=== PATIENT | female | born 1990 | race Hispanic/Latino ===

== ENCOUNTER 2018-01-13 19:30 | Emergency (ER) | payer MEDICAID ==
--- NOTE | 2018-01-13 19:57 | EDM.PDOC ---
ED HPI GENERAL MEDICAL PROBLEM - General Chief Complaint: ENT Problem Stated Complaint: PT HAS SORE THROAT AND EAR INFECTION Time Seen by Provider: 01/13/18 19:35 Source of Information: Reports: Patient History Limitations: Reports: No Limitations - History of Present Illness INITIAL COMMENTS - FREE TEXT/NARRATIVE: HISTORY AND PHYSICAL: History of present illness: 27-year-old female presenting emergency department chief complaint of sore throat, rhinorrhea 2 days. Mother states that her children have been sick and she yesterday began having mild sore throat with associated rhinorrhea. She denies any fever or chills, nausea, vomiting, abdominal pain, diarrhea, or other signs of systemic infection. Generally she is normally healthy. They do not have a care provider. Currently denies any chest pain, palpitations, shortness of breath, syncopal episodes, or focal neurologic deficits. On exam there is mild erythema to tonsils bilaterally no exudate. Mild submandibular lymphadenopathy Nontender Review of systems: As per history of present illness and below otherwise all systems reviewed and negative. Past medical history: As per history of present illness and as reviewed below otherwise noncontributory. Surgical history: As per history of present illness and as reviewed below otherwise noncontributory. Social history: No reported history of drug or alcohol abuse. Family history: As per history of present illness and as reviewed below otherwise noncontributory. Physical exam: HEENT: Atraumatic, normocephalic, pupils reactive, negative for conjunctival pallor or scleral icterus, mucous membranes moist, neck supple, nontender, trachea midline. Lungs: Clear to auscultation, breath sounds equal bilaterally, chest nontender. Heart: S1S2, regular, mild Grade 2 systolic murmur, negative for clicks, rubs, or JVD. Abdomen: Soft, nondistended, nontender. Negative for masses or hepatosplenomegaly. Negative for costovertebral tenderness. Pelvis: Stable nontender. Genitourinary: Deferred. Rectal: Deferred. Extremities: Atraumatic, negative for cords or calf pain. Neurovascular unremarkable. Neuro: Awake, alert, oriented. Cranial nerves II through XII unremarkable. Cerebellum unremarkable. Motor and sensory unremarkable throughout. Exam nonfocal. Diagnostics: Rapid strep Therapeutics: [] Impression: Viral upper respiratory tract infection Plan: Rapid strep was negative. Patient most likely has viral upper respiratory tract infection. I did instruct mother to continue washing hands as both daughters were positive for strep and she could be susceptible to this. Instructed them to follow up with primary care provider and return to emergency department if any new or worsening symptoms. Definitive disposition and diagnosis as appropriate pending reevaluation and review of above. throat Pain Score (Numeric/FACES): 6 - Related Data Allergies Allergy/AdvReac Type Severity Reaction Status Date / Time No Known Allergies Allergy Verified 01/13/18 19:49 Home Meds: Home Meds . 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: Musculoskeletal History: Reports: None Neurological History: Reports: None Psychiatric History: Reports: None Endocrine/Metabolic History: Reports: None Hematologic History: Reports: None Immunologic History: Reports: None Oncologic (Cancer) History: Reports: None Dermatologic History: Reports: None - Infectious Disease History Infectious Disease History: Reports: None - Past Surgical History Head Surgeries/Procedures: Reports: None Female Surgical History: Reports: Section Social & Family History - Family History Family Medical History: Noncontributory - Tobacco Use Smoking Status *Q: Never Smoker - Caffeine Use Caffeine Use: Reports: None - Recreational Drug Use Recreational Drug Use: No ED ROS GENERAL - Review of Systems Review Of Systems: ROS reveals no pertinent complaints other than HPI. ED EXAM, GENERAL - Physical Exam Exam: See Below Course - Vital Signs Last Recorded V/S: Last Vital Signs Temp 97.5 F 01/13/18 19:49 Pulse 76 01/13/18 19:49 Resp 18 01/13/18 19:49 BP 151/93 H 01/13/18 19:49 Pulse Ox 98 01/13/18 19:49 - Orders/Labs/Meds Orders: Active Orders 24 hr Category Date Time Status CULTURE STREP A CONFIRMATION [] Stat Lab 01/13/18 19:46 Results STREP SCRN A RAPID W CULT CONF [] Stat Lab 01/13/18 19:46 Ordered Departure - Departure Time of Disposition: 20:51 Disposition: Home, Self-Care 01 Condition: Good Clinical Impression: Viral URI - Discharge Information Forms: ED Department Discharge Additional Instructions: My general discharge The following information is given to patients seen in the emergency department who are being discharged to home. This information is to outline your options for follow-up care. We provide all patients seen in our emergency department with a follow-up referral. The need for follow-up, as well as the timing and circumstances, are variable depending upon the specifics of your emergency department visit. If you don't have a primary care physician on staff, we will provide you with a referral. We always advise you to contact your personal physician following an emergency department visit to inform them of the circumstance of the visit and for follow-up with them and/or the need for any referrals to a consulting specialist. The emergency department will also refer you to a specialist when appropriate. This referral assures that you have the opportunity for follow-up care with a specialist. All of these measure are taken in an effort to provide you with optimal care, which includes your follow-up. Under all circumstances we always encourage you to contact your private physician who remains a resource for coordinating your care. When calling for follow-up care, please make the office aware that this follow-up is from your recent emergency room visit. If for any reason you are refused follow-up, please contact the [facility] Emergency Department at and asked to speak to the emergency department charge nurse. [facility] [address] [place] [phone] As we discussed call primary care with number above to follow-up and establish care for your family. Be sure to tell them that you're seen in the emergency department and they wished for you to be seen as soon as possible for follow-up. Return to emergency department if any new or worsening symptoms. - My Orders Last 24 Hours: My Active Orders 01/13/18 19:46 CULTURE STREP A CONFIRMATION [RM] Stat STREP SCRN A RAPID W CULT CONF [RM] Stat - Assessment/Plan Last 24 Hours: My Active Orders 01/13/18 19:46 CULTURE STREP A CONFIRMATION [RM] Stat STREP SCRN A RAPID W CULT CONF [RM] Stat
== END 2018-01-13 21:00 | disposition home or self-care (01) ==
LOC: MW.ED 19:30
DX: J06.9 Acute upper respiratory infection, unspecified (principal)
CPT/HCPCS: 87081; 87880-QW; 99283

== ENCOUNTER 2018-02-04 12:43 | Emergency (ER) | payer MEDICAID ==
[2018-02-04] MEDS ORDERED: Sodium Chloride 0.9% 2.5 ML Syringe FLUSH PRN (13:13)
[2018-02-04] MEDS ORDERED: Ketorolac 30 MG/ML SDV IVPUSH ONE (13:13)
[2018-02-04] MEDS ORDERED: diphenhydrAMINE 50 MG/ML SDV IVPUSH ONE (13:13)
[2018-02-04] MEDS ORDERED: Sodium Chloride 0.9% 1,000 ML IV ONE (13:13)
[2018-02-04] MEDS ORDERED: Sodium Chloride 0.9% 10 ML Syringe FLUSH PRN (13:13)
--- NOTE | 2018-02-04 13:13 | EDM.PDOC ---
ED HPI GENERAL MEDICAL PROBLEM - General Chief Complaint: Headache Stated Complaint: HEADACHES Time Seen by Provider: 02/04/18 13:10 Source of Information: Reports: Patient History Limitations: Reports: No Limitations - History of Present Illness INITIAL COMMENTS - FREE TEXT/NARRATIVE: HISTORY AND PHYSICAL: [] 27-year-old female presenting with headache for the last 3 days History of Present Illness: []Patient states that she had gone to bed awakened with a headache Has nausea but has not vomited Light seems to hurt her eyes No loss of balance Has never had a headache like this previously MOther has history of migraines No reported injury Review of Systems: As per history of present illness and below otherwise all systems reviewed and negative. Past medical history: As per history of present illness and as reviewed below otherwise noncontributory. Surgical history: As per history of present illness and as reviewed below otherwise noncontributory. Social history: No reported history of drug or alcohol abuse. Family history: As per history of present illness and as reviewed below otherwise noncontributory. Physical exam: Alert and oriented female answering questions appropriately in full sentences no shortness of breath with speaking. HEENT: Atraumatic, normocehpalic, pupils reactive, negative for conjunctival pallor or scleral icterus, mucous membranes moist, throat clear, neck supple, nontender, trachea midline. PERRLA no nystagmus noted on examination. Tenderness is noted on palpation to the left side of posterior neck. No cervical adenopathy. Lungs: Clear to auscultation, breath sounds equal bilaterally, chest non tender. Heart: S1S2, regular, negative for clicks, rubs, or JVD. Abdomen: Soft, nondistended, nontender. Negative for masses or hepatossplenmegaly. Negative for costovertebral tenderness. Pelvis: Stable nontender. Genitourinary: Deferred. Rectal: Deferred Extremities: Atraumatic, negative for cords or calf pain. Neurovascular unremarkable. Neuro: Awake, alert, oriented. Cranial nerves II through XII unremarkable. Cerebellum unremarkable. Motor and sensory unremarkable throughout. Exam nonfocal. Patient has improved with the medication that has been given to her Diagnostics: []CBC CMP head CT without Therapeutics: []1 L normal saline Benadryl Compazine Ativan Toradol Impression: []Migraine headache Plan: []Discharged home Today/work note given for tomorrow You may take [id number] medication is Excedrin migraine as directed on the bottle Follow-up with your primary care provider If you do not have a primary care provider you may see one of these clinics for follow-up care state that she was seen in the emergency room [facility] [address] [place] [phone] [id number] Return to emergency room as directed and discussed Definitive disposition and diagnosis as appropriate pending reevaluation and review of above. Onset: Gradual Duration: Day(s): (3) Headache Pain Score (Numeric/FACES): 7 - Related Data Allergies Allergy/AdvReac Type Severity Reaction Status Date / Time Iodinated Contrast- Oral and Allergy Rash Verified 02/04/18 13:15 IV Dye Home Meds: Home Meds Calcium Carbonate [Calcium] 1 tab PO DAILY 02/04/18 [History] Cholecalciferol (Vitamin D3) [Vitamin D] 1 tab PO DAILY 02/04/18 [History] Multivitamins [Tab-A-Racheal] 1 tab PO DAILY 02/04/18 [History] Past Medical History HEENT History: Reports: None Cardiovascular History: Reports: None Respiratory History: Reports: None Gastrointestinal History: Reports: None Genitourinary History: Reports: None 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: Musculoskeletal History: Reports: None Neurological History: Reports: None Psychiatric History: Reports: None Endocrine/Metabolic History: Reports: None Hematologic History: Reports: None Immunologic History: Reports: None Oncologic (Cancer) History: Reports: None Dermatologic History: Reports: None - Infectious Disease History Infectious Disease History: Reports: None - Past Surgical History Head Surgeries/Procedures: Reports: None Female Surgical History: Reports: Section Social & Family History - Family History Family Medical History: Noncontributory - Caffeine Use Caffeine Use: Reports: None ED ROS GENERAL - Review of Systems Review Of Systems: ROS reveals no pertinent complaints other than HPI. - Physical Exam Exam: See Below (see dictation) Course - Vital Signs Last Recorded V/S: Last Vital Signs Temp 36.1 C 02/04/18 13:11 Pulse 72 02/04/18 13:11 Resp 17 02/04/18 13:11 BP 132/84 02/04/18 13:11 Pulse Ox 98 02/04/18 13:11 - Orders/Labs/Meds Orders: Active Orders 24 hr Category Date Time Status Sodium Chloride 0.9% [Saline Flush] Med 02/04/18 13:13 Active 10 ml FLUSH ASDIRECTED PRN Sodium Chloride 0.9% [Saline Flush] Med 02/04/18 13:13 Active 2.5 ml FLUSH ASDIRECTED PRN Saline Lock Insert [OM.PC] Stat Oth 02/04/18 13:13 Ordered Medication Orders Sodium Chloride (Saline Flush) 10 ml FLUSH ASDIRECTED PRN PRN Reason: Keep Vein Open Last Admin: 02/04/18 13:23 Dose: 10 ml Sodium Chloride (Saline Flush) 2.5 ml FLUSH ASDIRECTED PRN PRN Reason: Keep Vein Open Last Admin: 02/04/18 13:23 Dose: 2.5 ml Labs: Laboratory Tests 02/04/18 02/04/18 Range/Units 13:20 13:20 WBC 6.28 (4.0-11.0) K/uL RBC 4.25 L (4.30-5.90) M/uL Hgb 13.3 (12.0-16.0) g/dL Hct 38.9 (36.0-46.0) % MCV 91.5 (80.0-98.0) fL MCH 31.3 (27.0-32.0) pg MCHC 34.2 (31.0-37.0) g/dL RDW Std Deviation 42.1 (28.0-62.0) fl RDW Coeff of Socrates 13 (11.0-15.0) % Plt Count 213 (150-400) K/uL MPV 10.50 (7.40-12.00) fL Neut % (Auto) 59.1 (48.0-80.0) % Lymph % (Auto) 29.9 (16.0-40.0) % Hunt % (Auto) 9.7 (0.0-15.0) % Eos % (Auto) 0.8 (0.0-7.0) % Baso % (Auto) 0.5 (0.0-1.5) % Neut # (Auto) 3.7 (1.4-5.7) K/uL Lymph # (Auto) 1.9 (0.6-2.4) K/uL Hunt # (Auto) 0.6 (0.0-0.8) K/uL Eos # (Auto) 0.1 (0.0-0.7) K/uL Baso # (Auto) 0.0 (0.0-0.1) K/uL Nucleated RBC % 0.0 /100WBC Nucleated RBCs # 0 K/uL Sodium 139 (136-145) mmol/L Potassium 4.0 (3.5-5.1) mmol/L Chloride 104 (98-107) mmol/L Carbon Dioxide 26.4 (21.0-32.0) mmol/L BUN 15 (7.0-18.0) mg/dL Creatinine 0.8 (0.6-1.0) mg/dL Est Cr Clr Drug Dosing 74.53 mL/min Estimated GFR (MDRD) > 60.0 ml/min Glucose 118 H (74-106) mg/dL Calcium 8.9 (8.5-10.1) mg/dL Total Bilirubin 0.4 (0.2-1.0) mg/dL AST 25 (15-37) IU/L ALT 32 (14-63) IU/L Alkaline Phosphatase 65 (46-116) U/L Total Protein 7.7 (6.4-8.2) g/dL Albumin 3.6 (3.4-5.0) g/dL Globulin 4.1 H (2.0-3.5) g/dL Albumin/Globulin Ratio 0.9 L (1.3-2.8) Meds: Medications Generic Name Dose Route Start Last Admin Trade Name Freq PRN Reason Stop Dose Admin Sodium Chloride 10 ml 02/04/18 13:13 02/04/18 13:23 Saline Flush FLUSH 10 ml ASDIRECTED PRN Administration Keep Vein Open Sodium Chloride 2.5 ml 02/04/18 13:13 02/04/18 13:23 Saline Flush FLUSH 2.5 ml ASDIRECTED PRN Administration Keep Vein Open Discontinued Medications Generic Name Dose Route Start Last Admin Trade Name Freq PRN Reason Stop Dose Admin Diphenhydramine HCl 25 mg 02/04/18 13:13 02/04/18 13:24 Benadryl IVPUSH 02/04/18 13:14 25 mg ONETIME ONE Administration Sodium Chloride 1,000 mls @ 999 mls/hr 02/04/18 13:13 02/04/18 13:23 Normal Saline IV 02/04/18 14:13 999 mls/hr STAT ONE Administration Ketorolac Tromethamine 30 mg 02/04/18 13:13 02/04/18 13:23 Toradol IVPUSH 02/04/18 13:14 30 mg ONETIME ONE Administration Lorazepam 1 mg 02/04/18 13:14 02/04/18 13:24 Ativan IVPUSH 02/04/18 13:15 1 mg ONETIME ONE Administration Departure - Departure Time of Disposition: 14:38 Disposition: Home, Self-Care 01 Condition: Good Clinical Impression: Migraine - Discharge Information *PRESCRIPTION DRUG MONITORING PROGRAM REVIEWED*: Not Applicable *COPY OF PRESCRIPTION DRUG MONITORING REPORT IN PATIENT LOKESH: Not Applicable Instructions: Migraine Headache, [id number] Referrals: PCP,None [Primary Care Provider] - Forms: ED Department Discharge Additional Instructions: The following information is given to patients seen in the emergency department who are being discharged to home. This information is to outline your options for follow-up care. We provide all patients seen in our emergency department with a follow-up referral. The need for follow-up, Discharged home Today/work note given for tomorrow You may take [id number] medication is Excedrin migraine as directed on the bottle Follow-up with your primary care provider If you do not have a primary care provider you may see one of these clinics for follow-up care state that she was seen in the emergency room [facility] [address] [place] [phone] [address] Return to emergency room as directed and discussedl as the timing and circumstances, are variable depending upon the specifics of your emergency department visit. If you don't have a primary care physician on staff, we will provide you with a referral. We always advise you to contact your personal physician following an emergency department visit to inform them of the circumstance of the visit and for follow-up with them and/or the need for any referrals to a consulting specialist. The emergency department will also refer you to a specialist when appropriate. This referral assures that you have the opportunity for followup care with a specialist. All of these measure are taken in an effort to provide you with optimal care, which includes your followup. Under all circumstances we always encourage you to contact your private physician who remains a resource for coordinating your care. When calling for followup care, please make the office aware that this follow-up is from your recent emergency room visit. If for any reason you are refused follow-up, please contact the [facility] emergency department at and asked to speak to the emergency department charge nurse. - My Orders Last 24 Hours: My Active Orders 02/04/18 13:13 Sodium Chloride 0.9% [Saline Flush] 10 ml FLUSH ASDIRECTED PRN Sodium Chloride 0.9% [Saline Flush] 2.5 ml FLUSH ASDIRECTED PRN Saline Lock Insert [OM.PC] Stat - Assessment/Plan Last 24 Hours: My Active Orders 02/04/18 13:13 Sodium Chloride 0.9% [Saline Flush] 10 ml FLUSH ASDIRECTED PRN Sodium Chloride 0.9% [Saline Flush] 2.5 ml FLUSH ASDIRECTED PRN Saline Lock Insert [OM.PC] Stat
[2018-02-04] MEDS ORDERED: LORazepam 2 MG/ML SDV IVPUSH ONE (13:14)
--- NOTE | 2018-02-04 13:56 | CT ---
EXAMINATION: Non contrast CT head. Coronal and sagittal reformats. HISTORY: Pain FINDINGS: No evidence of intra or extra axial hemorrhage, mass, midline shift, hydrocephalus or edema. No hypoattenuation changes in the major vascular territories to suggest acute infarct. No abnormal intracranial calcifications are detected. No evidence of substantial vascular calcificat ions. Paranasal sinuses and mastoid air cells are well aerated without substantial findings. Orbits and gl obes are symmetric. Pituitary fossa appears unremarkable. Calvarium is intact. No evidence of skull fracture. IMPRESSION: No acute intracranial findings.
[2018-02-04 14:17] LABS: CHLORIDE,CL 104 mmol/L (98-107); SODIUM,NA 139 mmol/L (136-145)
== END 2018-02-04 15:03 | disposition home or self-care (01) ==
LOC: MW.ED 12:43
DX: G43.909 Migraine, unspecified, not intractable, without status migrainosus (principal); Z91.041 Radiographic dye allergy status; Z79.899 Other long term (current) drug therapy
CPT/HCPCS: 36415; 70450; 80053; 85025; 96361; 96374; 96375; 99284; J1200; J1885; J2060; J7040

== ENCOUNTER 2018-02-05 12:00 | Emergency (ER) | payer MEDICAID ==
[2018-02-05] MEDS ORDERED: Ketorolac 60 MG/2 ML SDV IM ONE (12:35)
--- NOTE | 2018-02-05 12:42 | EDM.PDOC ---
ED HPI GENERAL MEDICAL PROBLEM - General Chief Complaint: Headache Stated Complaint: HEADACHES/NECK/BACK PAIN Time Seen by Provider: 02/05/18 12:40 Source of Information: Reports: Patient History Limitations: Reports: No Limitations - History of Present Illness INITIAL COMMENTS - FREE TEXT/NARRATIVE: HISTORY AND PHYSICAL: History of present illness: Patient is a 27-year-old female here with complaint of headache. She was seen in the ER yesterday with complaint of new onset headache, CBC, CMP and head CT were negative. She reports her headache was improved when she was discharged but states he came back later on last night. He states that she was having a lot of pain on the left side of her neck into left side of her head and left arm felt tingly. She denies history of headaches prior to this but reports that her mother has a history of migraine headaches. States that she has nausea but no vomiting and sensitivity to light. He is not taking anything at home for her headaches. She denies any fevers, chills, abdominal pain, diarrhea. Patient rates her pain 8/10. Review of systems: As per history of present illness and below otherwise all systems reviewed and negative. Past medical history: As per history of present illness and as reviewed below otherwise noncontributory. Surgical history: As per history of present illness and as reviewed below otherwise noncontributory. Social history: No reported history of drug or alcohol abuse. Family history: As per history of present illness and as reviewed below otherwise noncontributory. Physical exam: General: Patient sitting pucomfortably in no acute distress and nontoxic appearing HEENT: Atraumatic, normocephalic, pupils reactive, negative for conjunctival pallor or scleral icterus, mucous membranes moist, throat clear, neck supple, nontender, trachea midline. No meningeal signs. Lungs: Clear to auscultation, breath sounds equal bilaterally, chest nontender. Heart: S1S2, regular, negative for clicks, rubs, or overt murmur. Abdomen: Soft, nondistended, nontender. Negative for masses or hepatosplenomegaly. Negative for costovertebral tenderness. Pelvis: Stable nontender. Genitourinary: Deferred. Rectal: Deferred. Spine: Tender to palpation of left cervical paraspinals. Extremities: Atraumatic, negative for cords or calf pain. Neurovascular unremarkable. Neuro: Awake, alert, oriented. Cranial nerves II through XII unremarkable. Cerebellum unremarkable. Motor and sensory unremarkable throughout. Exam nonfocal. Notes: 1300 - Patient reports no improvement in headache with toradol and norflex. 1400 - patient reports headache improved to 5/10. Discussed with patient admission for headache vs outpatient follow up, patient will follow up outpatient. Diagnostics: None Therapeutics: 60mg Toradol IM, 60mg Norflex IM 1L NS IV, 4mg Zofran IV, 10mg Reglan IV Prescriptions: Flexeril 10mg Impression: Headache, tension-type vs migraine Plan: 1. Take flexeril at bedtime and exedrin as needed for headache 2. Follow up with primary care provider 3. Return to ED as needed as discussed Definitive disposition and diagnosis as appropriate pending reevaluation and review of above. Headache Pain Score (Numeric/FACES): 9 - Related Data Allergies Allergy/AdvReac Type Severity Reaction Status Date / Time Iodinated Contrast- Oral and Allergy Rash Verified 02/05/18 12:18 IV Dye Home Meds: Home Meds Calcium Carbonate [Calcium] 1 tab PO DAILY 02/04/18 [History] Cholecalciferol (Vitamin D3) [Vitamin D] 1 tab PO DAILY 02/04/18 [History] Multivitamins [Tab-A-Racheal] 1 tab PO DAILY 02/04/18 [History] Cyclobenzaprine [Flexeril] 10 mg PO BEDTIME 10 Days #10 tab 02/05/18 [Rx] Past Medical History - Past Health History Medical/Surgical History: Denies Medical/Surgical History HEENT History: Reports: None Cardiovascular History: Reports: None, Heart Murmur Respiratory History: Reports: None Gastrointestinal History: Reports: None Genitourinary History: Reports: None 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: Musculoskeletal History: Reports: None Neurological History: Reports: None Psychiatric History: Reports: Anxiety Endocrine/Metabolic History: Reports: None Hematologic History: Reports: None Immunologic History: Reports: None Oncologic (Cancer) History: Reports: None Dermatologic History: Reports: None - Infectious Disease History Infectious Disease History: Reports: Chicken Pox - Past Surgical History Head Surgeries/Procedures: Reports: None Female Surgical History: Reports: Section Social & Family History - Family History Family Medical History: Noncontributory - Tobacco Use Smoking Status *Q: Never Smoker - Caffeine Use Caffeine Use: Reports: Coffee, Tea - Recreational Drug Use Recreational Drug Use: No ED ROS GENERAL - Review of Systems Review Of Systems: ROS reveals no pertinent complaints other than HPI. - Physical Exam Exam: See Below (see dictation) Course - Vital Signs Last Recorded V/S: Last Vital Signs Temp 36.9 C 02/05/18 12:15 Pulse 78 02/05/18 12:15 Resp 18 02/05/18 12:15 BP 134/74 02/05/18 12:15 Pulse Ox 97 02/05/18 12:15 - Orders/Labs/Meds Orders: Active Orders 24 hr Category Date Time Status Sodium Chloride 0.9% [Normal Saline] 1,000 ml Med 02/05/18 13:16 Active IV STAT Sodium Chloride 0.9% [Saline Flush] Med 02/05/18 13:16 Active 10 ml FLUSH ASDIRECTED PRN Sodium Chloride 0.9% [Saline Flush] Med 02/05/18 13:16 Active 2.5 ml FLUSH ASDIRECTED PRN Saline Lock Insert [OM.PC] Stat Oth 02/05/18 13:16 Ordered Medication Orders Sodium Chloride (Normal Saline) 1,000 mls @ 999 mls/hr IV STAT ONE Stop: 02/05/18 14:16 Last Admin: 02/05/18 13:35 Dose: 999 mls/hr Sodium Chloride (Saline Flush) 10 ml FLUSH ASDIRECTED PRN PRN Reason: Keep Vein Open Last Admin: 02/05/18 13:36 Dose: 10 ml Sodium Chloride (Saline Flush) 2.5 ml FLUSH ASDIRECTED PRN PRN Reason: Keep Vein Open Last Admin: 02/05/18 13:36 Dose: 2.5 ml Meds: Medications Generic Name Dose Route Start Last Admin Trade Name Freq PRN Reason Stop Dose Admin Sodium Chloride 1,000 mls @ 999 mls/hr 02/05/18 13:16 02/05/18 13:35 Normal Saline IV 02/05/18 14:16 999 mls/hr STAT ONE Administration Sodium Chloride 10 ml 02/05/18 13:16 02/05/18 13:36 Saline Flush FLUSH 10 ml ASDIRECTED PRN Administration Keep Vein Open Sodium Chloride 2.5 ml 02/05/18 13:16 02/05/18 13:36 Saline Flush FLUSH 2.5 ml ASDIRECTED PRN Administration Keep Vein Open Discontinued Medications Generic Name Dose Route Start Last Admin Trade Name Freq PRN Reason Stop Dose Admin Diphenhydramine HCl 50 mg 02/05/18 13:16 02/05/18 13:36 Benadryl IVPUSH 02/05/18 13:17 50 mg ONETIME ONE Administration Ketorolac Tromethamine 60 mg 02/05/18 12:35 02/05/18 12:43 Toradol IM 02/05/18 12:36 60 mg ONETIME ONE Administration Metoclopramide HCl 10 mg 02/05/18 13:16 02/05/18 13:36 Reglan IV 02/05/18 13:17 10 mg ONETIME ONE Administration Ondansetron HCl 4 mg 02/05/18 13:16 02/05/18 13:36 Zofran IVPUSH 02/05/18 13:17 4 mg ONETIME ONE Administration Orphenadrine Citrate 60 mg 02/05/18 12:35 02/05/18 12:44 Norflex IM 02/05/18 12:36 60 mg ONETIME ONE Administration Departure - Departure Time of Disposition: 14:00 Disposition: Home, Self-Care 01 Condition: Good Clinical Impression: Headache - Discharge Information Prescriptions: Cyclobenzaprine [Flexeril] 10 mg PO BEDTIME 10 Days #10 tab Referrals: PCP,None [Primary Care Provider] - Forms: ED Department Discharge Additional Instructions: The following information is given to patients seen in the emergency department who are being discharged to home. This information is to outline your options for follow-up care. We provide all patients seen in our emergency department with a follow-up referral. The need for follow-up, as well as the timing and circumstances, are variable depending upon the specifics of your emergency department visit. If you don't have a primary care physician on staff, we will provide you with a referral. We always advise you to contact your personal physician following an emergency department visit to inform them of the circumstance of the visit and for follow-up with them and/or the need for any referrals to a consulting specialist. The emergency department will also refer you to a specialist when appropriate. This referral assures that you have the opportunity for follow-up care with a specialist. All of these measure are taken in an effort to provide you with optimal care, which includes your follow-up. Under all circumstances we always encourage you to contact your private physician who remains a resource for coordinating your care. When calling for follow-up care, please make the office aware that this follow-up is from your recent emergency room visit. If for any reason you are refused follow-up, please contact the [facility] Emergency Department at and asked to speak to the emergency department charge nurse. [facility] [address] [place] [id number] [facility] [address] [place] [id number] 1. Take flexeril at bedtime and Excedrin OTC as needed for headache 2. Follow up with primary care provider 3. Return to ED as needed as discussed - My Orders Last 24 Hours: My Active Orders 02/05/18 13:16 Sodium Chloride 0.9% [Normal Saline] 1,000 ml IV STAT Sodium Chloride 0.9% [Saline Flush] 10 ml FLUSH ASDIRECTED PRN Sodium Chloride 0.9% [Saline Flush] 2.5 ml FLUSH ASDIRECTED PRN Saline Lock Insert [OM.PC] Stat - Assessment/Plan Last 24 Hours: My Active Orders 02/05/18 13:16 Sodium Chloride 0.9% [Normal Saline] 1,000 ml IV STAT Sodium Chloride 0.9% [Saline Flush] 10 ml FLUSH ASDIRECTED PRN Sodium Chloride 0.9% [Saline Flush] 2.5 ml FLUSH ASDIRECTED PRN Saline Lock Insert [OM.PC] Stat
[2018-02-05] MEDS ORDERED: Sodium Chloride 0.9% 2.5 ML Syringe FLUSH PRN (13:16)
[2018-02-05] MEDS ORDERED: Metoclopramide 10 MG/2 ML SDV IV ONE (13:16)
[2018-02-05] MEDS ORDERED: Sodium Chloride 0.9% 1,000 ML IV ONE (13:16)
[2018-02-05] MEDS ORDERED: Sodium Chloride 0.9% 10 ML Syringe FLUSH PRN (13:16)
[2018-02-05] MEDS ORDERED: Ondansetron 4 MG/2 ML SDV IVPUSH ONE (13:16)
[2018-02-05] MEDS ORDERED: diphenhydrAMINE 50 MG/ML SDV IVPUSH ONE (13:16)
== END 2018-02-05 14:38 | disposition home or self-care (01) ==
LOC: MW.ED 12:00
DX: R51 Headache (principal); Z91.041 Radiographic dye allergy status
CPT/HCPCS: 96361; 96372; 96374; 96375; 99283; J1200; J1885; J2360; J2405; J2765; J7040

== ENCOUNTER 2018-07-20 15:14 | Emergency (ER) | payer BC ==
--- NOTE | 2018-07-20 15:45 | EDM.PDOC ---
ED HPI GENERAL MEDICAL PROBLEM - General Chief Complaint: Trauma Stated Complaint: FELL AND PREG Time Seen by Provider: 07/20/18 15:18 Source of Information: Reports: Patient History Limitations: Reports: No Limitations - History of Present Illness INITIAL COMMENTS - FREE TEXT/NARRATIVE: HISTORY AND PHYSICAL: History of present illness: Agent is a 28-year-old female who presents to the ED today after a fall that had happened Thursday. Patient states on Thursday she is unsure how she fell but lost consciousness. She is approximately 13 weeks and falls along with Dr. Sawant. Patient states that she called into the clinic yesterday letting him know she fell and had an appointment today with Dr. Sawant. At her appointment, she was cleared for her baby being okay. However, Dr. Sawant told patient to come to the ED for concerns of her shoulder. Patient states she has been unable to lift her left arm after the fall due to pain. Patient states she is unsure if she hit her head on Thursday but has felt fine all Thursday, yesterday, and today. She states her main concern was the baby. She has been fully evaluated by Dr. Sawant who has okayed the baby. Patient states that she did not remember falling and all of a sudden woke up on the ground. She has felt fine since then. Patient denies fever, chills, nausea, vomiting, abdominal pain, chest pain, change in vision, headache, nuchal rigidity, palpitations, or all other GI, , respiratory, or cardiovascular concerns. Patient denies any health concerns. Review of systems: As per history of present illness and below otherwise all systems reviewed and negative. Past medical history: As per history of present illness and as reviewed below otherwise noncontributory. Surgical history: As per history of present illness and as reviewed below otherwise noncontributory. Social history: See social history for further information Family history: As per history of present illness and as reviewed below otherwise noncontributory. Physical exam: General: Well-developed and well-nourished 28-year-old female. Alert and oriented. Nontoxic appearing and in no acute distress. HEENT: Atraumatic, normocephalic, pupils equal and reactive bilaterally, negative for conjunctival pallor or scleral icterus, mucous membranes moist, TMs normal bilaterally, throat clear, neck supple, nontender, trachea midline. No drooling or trismus noted. No meningeal signs. No hot potato voice noted. Lungs: Clear to auscultation, breath sounds equal bilaterally, chest nontender. Heart: S1S2, regular rate and rhythm without overt murmur Abdomen: Soft, nondistended, nontender. Negative for masses or hepatosplenomegaly. Negative for costovertebral tenderness. Pelvis: Stable nontender. Genitourinary: Deferred. Rectal: Deferred. Skin: Intact, warm, dry. No lesions or rashes noted. Extremities: Patient does have limited range of motion of the left arm due to pain. No obvious deformities. Full passive range of motion. Radial pulse grossly intact bilaterally. Otherwise, negative for cords or calf pain. Neurovascular unremarkable. Neuro: Awake, alert, oriented. Cranial nerves II through XII unremarkable. Cerebellum unremarkable. Motor and sensory unremarkable throughout. Exam nonfocal. Notes: Patient was initially brought here from Dr. Sawant's office. He wanted her evaluated through the emergency room due to a fall. Trauma Alert was called by Triage. Triage was able to get heart tones at bedside ranging from 140- 150 bpm. Right after the triage process was over Dr. Sawant's nurse had wanted to bring her back to his office for reevaluation. Patient was removed from the ER at 1520. Patient was reevaluated by Dr Sawant and brought back to the ED by Jese's nurse at 1540. Vital signs were reassessed, they are within normal limits. Provider physical examination was able to be done at 1540. Labs today do show that she has urinary tract infection. Rest of labs are unremarkable. Imaging today shows no acute osseous abnormality. The importance for follow-up with her OBGYN and orthopedics. A sling was provided today for patient. Supportive care measures were reviewed and discussed. Voices understanding and is agreeable to plan of care. Denies any further questions or concerns at this time. Diagnostics: CBC, CMP, UA, quantitative hCG, shoulder x-ray, EKG Therapeutics: None Prescription: Macrobid Impression: Urinary tract infection Shoulder injury, left Plan: 1. Rest, ice and elevate the painful extremity as able. Increase your oral fluids. Take UTI/antibiotic medication as prescribed. 2. Follow-up with your primary care provider/OBGYN as discussed. 3. You can use Tylenol as needed for pain management. This is safe to use in . 4. Return to the ED as needed and as discussed. Definitive disposition and diagnosis as appropriate pending reevaluation and review of above. Left shoulder Pain Score (Numeric/FACES): 8 - Related Data Allergies Allergy/AdvReac Type Severity Reaction Status Date / Time Iodinated Contrast- Oral and Allergy Rash Verified 07/20/18 16:10 IV Dye Home Meds: Home Meds Calcium Carbonate [Calcium] 1 tab PO DAILY 02/04/18 [History] Cholecalciferol (Vitamin D3) [Vitamin D] 1 tab PO DAILY 02/04/18 [History] Multivitamins [Tab-A-Racheal] 1 tab PO DAILY 02/04/18 [History] Cyclobenzaprine [Flexeril] 10 mg PO BEDTIME 10 Days #10 tab 02/05/18 [Rx] Nitrofurantoin Lehigh/Macrocryst [Nitrofurantoin Lehigh-MCR] 100 mg PO BID 7 Days # 14 cap 07/20/18 [Rx] Past Medical History - Past Health History Medical/Surgical History: Denies Medical/Surgical History HEENT History: Reports: None Cardiovascular History: Reports: None, Heart Murmur, High Cholesterol Respiratory History: Reports: None Gastrointestinal History: Reports: None Genitourinary History: Reports: None 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: Musculoskeletal History: Reports: None Neurological History: Reports: None Psychiatric History: Reports: Anxiety Endocrine/Metabolic History: Reports: None Hematologic History: Reports: None Immunologic History: Reports: None Oncologic (Cancer) History: Reports: None Dermatologic History: Reports: None - Infectious Disease History Infectious Disease History: Reports: Chicken Pox - Past Surgical History Head Surgeries/Procedures: Reports: None Female Surgical History: Reports: Section Social & Family History - Family History Family Medical History: Noncontributory - Caffeine Use Caffeine Use: Reports: Coffee Review of Systems - Review of Systems Review Of Systems: ROS reveals no pertinent complaints other than HPI. ED EXAM, GENERAL - Physical Exam Exam: See Below (See dictation) Course - Vital Signs Last Recorded V/S: Last Vital Signs Temp 97.1 F 07/20/18 16:10 Pulse 78 07/20/18 16:10 Resp 16 07/20/18 16:10 BP 123/97 H 07/20/18 16:10 Pulse Ox 98 07/20/18 16:10 - Orders/Labs/Meds Orders: Active Orders 24 hr Category Date Time Status EKG Documentation Completion [RC] STAT Care 07/20/18 15:50 Active CULTURE URINE [RM] Stat Lab 07/20/18 15:58 Received DME for Discharge [COMM] Stat Oth 07/20/18 17:46 Ordered Labs: Laboratory Tests 07/20/18 07/20/18 07/20/18 Range/Units 15:54 15:54 15:58 WBC 8.31 (4.0-11.0) K/uL RBC 3.99 L (4.30-5.90) M/uL Hgb 12.7 (12.0-16.0) g/dL Hct 36.7 (36.0-46.0) % MCV 92.0 (80.0-98.0) fL MCH 31.8 (27.0-32.0) pg MCHC 34.6 (31.0-37.0) g/dL RDW Std Deviation 46.9 (28.0-62.0) fl RDW Coeff of Socrates 14 (11.0-15.0) % Plt Count 195 (150-400) K/uL MPV 10.60 (7.40-12.00) fL Neut % (Auto) 64.6 (48.0-80.0) % Lymph % (Auto) 28.0 (16.0-40.0) % [place] % (Auto) 7.0 (0.0-15.0) % Eos % (Auto) 0.2 (0.0-7.0) % Baso % (Auto) 0.2 (0.0-1.5) % Neut # (Auto) 5.4 (1.4-5.7) K/uL Lymph # (Auto) 2.3 (0.6-2.4) K/uL [place] # (Auto) 0.6 (0.0-0.8) K/uL Eos # (Auto) 0.0 (0.0-0.7) K/uL Baso # (Auto) 0.0 (0.0-0.1) K/uL Nucleated RBC % 0.0 /100WBC Nucleated RBCs # 0 K/uL Sodium 139 (136-145) mmol/L Potassium 3.4 L (3.5-5.1) mmol/L Chloride 104 (98-107) mmol/L Carbon Dioxide 21.2 (21.0-32.0) mmol/L BUN 9 (7.0-18.0) mg/dL Creatinine 0.7 (0.6-1.0) mg/dL Est Cr Clr Drug Dosing 84.41 mL/min Estimated GFR (MDRD) > 60.0 ml/min Glucose 91 (74-106) mg/dL Calcium 8.9 (8.5-10.1) mg/dL Total Bilirubin 0.2 (0.2-1.0) mg/dL AST 19 (15-37) IU/L ALT 23 (14-63) IU/L Alkaline Phosphatase 64 (46-116) U/L Total Protein 7.4 (6.4-8.2) g/dL Albumin 3.0 L (3.4-5.0) g/dL Globulin 4.4 H (2.6-4.0) g/dL Albumin/Globulin Ratio 0.7 L (0.9-1.6) HCG, Quant 22476.0 mIU/mL Urine Color YELLOW Urine Appearance CLEAR Urine pH 6.0 (5.0-8.0) Ur Specific [place] 1.010 (1.001-1.035) Urine Protein NEGATIVE (NEGATIVE) mg/dL Urine Glucose (UA) NEGATIVE (NEGATIVE) mg/dL Urine Ketones NEGATIVE (NEGATIVE) mg/dL Urine Occult Blood NEGATIVE (NEGATIVE) Urine Nitrite NEGATIVE (NEGATIVE) Urine Bilirubin NEGATIVE (NEGATIVE) Urine Urobilinogen 0.2 (<2.0) EU/dL Ur Leukocyte Esterase LARGE H (NEGATIVE) Urine RBC 2-4 (0-2/HPF) Urine WBC 4-6 (0-5/HPF) Ur Epithelial Cells MODERATE (NONE-FEW) Urine Bacteria FEW (NEGATIVE) Meds: Medications Discontinued Medications Generic Name Dose Route Start Last Admin Trade Name Freq PRN Reason Stop Dose Admin Sodium Chloride 1,000 mls @ 999 mls/hr 07/20/18 15:50 07/20/18 16:08 Normal Saline IV 07/20/18 16:50 999 mls/hr STAT ONE Administration Departure - Departure Time of Disposition: 17:47 Disposition: Home, Self-Care 01 Clinical Impression: UTI, Urinary tract infectious disease Injury of left shoulder Qualifiers: Encounter type: initial encounter Qualified Code(s): S49.92XA - Unspecified injury of left shoulder and upper arm, initial encounter - Discharge Information Prescriptions: Nitrofurantoin [place]/Macrocryst [Nitrofurantoin Lehigh-MCR] 100 mg PO BID 7 Days # 14 cap Instructions: Urinary Tract Infection, Adult, [id number] Referrals: PCP,Unknown [Primary Care Provider] - Forms: ED Department Discharge Additional Instructions: The following information is given to patients seen in the emergency department who are being discharged to home. This information is to outline your options for follow-up care. We provide all patients seen in our emergency department with a follow-up referral. The need for follow-up, as well as the timing and circumstances, are variable depending upon the specifics of your emergency department visit. If you don't have a primary care physician on staff, we will provide you with a referral. We always advise you to contact your personal physician following an emergency department visit to inform them of the circumstance of the visit and for follow-up with them and/or the need for any referrals to a consulting specialist. The emergency department will also refer you to a specialist when appropriate. This referral assures that you have the opportunity for follow-up care with a specialist. All of these measure are taken in an effort to provide you with optimal care, which includes your follow-up. Under all circumstances we always encourage you to contact your private physician who remains a resource for coordinating your care. When calling for follow-up care, please make the office aware that this follow-up is from your recent emergency room visit. If for any reason you are refused follow-up, please contact the [facility] Emergency Department at and asked to speak to the emergency department charge nurse. [facility] [address] [place] [id number] [facility] [address] [place] [id number] 1. Rest, ice and elevate the painful extremity as able. Increase your oral fluids. Take UTI/antibiotic medication as prescribed. 2. Follow-up with your primary care provider/OBGYN as discussed. 3. You can use Tylenol as needed for pain management. This is safe to use in . 4. Return to the ED as needed and as discussed. - My Orders Last 24 Hours: My Active Orders 07/20/18 15:50 EKG Documentation Completion [RC] STAT 07/20/18 15:58 CULTURE URINE [RM] Stat 07/20/18 17:46 DME for Discharge [COMM] Stat - Assessment/Plan Last 24 Hours: My Active Orders 07/20/18 15:50 EKG Documentation Completion [RC] STAT 07/20/18 15:58 CULTURE URINE [RM] Stat 07/20/18 17:46 DME for Discharge [COMM] Stat
[2018-07-20] MEDS ORDERED: Sodium Chloride 0.9% 1,000 ML IV ONE (15:50)
[2018-07-20 17:18] LABS: CHLORIDE,CL 104 mmol/L (98-107); SODIUM,NA 139 mmol/L (136-145)
--- NOTE | 2018-07-20 17:41 | CR ---
INDICATION: TECHNIQUE: KUB 2 views COMPARISON: None. IMPRESSION: There are no suspicious calcifications to suggest kidney or ureteral stones. Bowel pattern is within normal limits. Remainder of the exam is unremarkable. TECHNIQUE: Left shoulder 3 views. COMPARISON: None. FINDINGS: Bones: Alignment is normal. No fractures or bone lesions. Joint spaces: Unremarkable. Soft tissues: Unremarkable. IMPRESSION: Unremarkable left shoulder. Dictated by: Nicolas Dyer MD @ 07/20/2018 17:40:39 (Electronically Signed)
== END 2018-07-20 18:04 | disposition home or self-care (01) ==
LOC: MW.ED 15:14
DX: O9A.211 Injury, poisoning and certain other consequences of external causes complicating pregnancy, first trimester (principal); S49.92XA Unspecified injury of left shoulder and upper arm, initial encounter; O23.41 Unspecified infection of urinary tract in pregnancy, first trimester; Z3A.13 13 weeks gestation of pregnancy; Z91.041 Radiographic dye allergy status; W19.XXXA Unspecified fall, initial encounter
CPT/HCPCS: 36415; 73030; 80053; 81001; 84702; 85025; 87086; 93005; 96360; 99284; J7040; 99283

== ENCOUNTER 2019-05-19 13:33 | Emergency (ER) | payer BC ==
--- NOTE | 2019-05-19 15:33 | EDM.PDOC ---
ED HPI GENERAL MEDICAL PROBLEM - General Chief Complaint: General Stated Complaint: FLU Time Seen by Provider: 05/19/19 13:45 Source of Information: Reports: Patient History Limitations: Reports: No Limitations - History of Present Illness INITIAL COMMENTS - FREE TEXT/NARRATIVE: HISTORY AND PHYSICAL: History of present illness: Patient is a 29-year-old female who presents to the ED today with concern of sore throat, bilateral ear pain, and cough over the past 1 week. Patient states that her symptoms have been improving over the course of the week and are much better than when they first started. Patient states she decided to come to be evaluated in the ED today after her was diagnosed with influenza B today. Patient denies any other symptoms or concerns. Patient denies any health history. Patient denies fever, chills, chest pain, shortness of breath. Denies headache, neck stiff ness, change in vision, syncope, or near syncope. Denies nausea, vomiting, abdominal pain, diarrhea, constipation, or dysuria. Has not noted any blood in urine or stool. Patient has been eating and drinking appropriately. Review of systems: As per history of present illness and below otherwise all systems reviewed and negative. Past medical history: As per history of present illness and as reviewed below otherwise noncontributory. Surgical history: As per history of present illness and as reviewed below otherwise noncontributory. Social history: See social history for further information Family history: As per history of present illness and as reviewed below otherwise noncontributory. Physical exam: General: Patient is alert, oriented, and in no acute distress. Patient sitting comfortably on exam table. HEENT: Atraumatic, normocephalic, pupils equal and reactive bilaterally, negative for conjunctival pallor or scleral icterus, mucous membranes moist, TMs normal bilaterally, throat clear, uvula midline, neck supple, nontender, trachea midline. No drooling or trismus noted. No meningeal signs. No hot potato voice noted. Lungs: Clear to auscultation, breath sounds equal bilaterally, chest nontender. Heart: S1S2, regular rate and rhythm without overt murmur Abdomen: Soft, nondistended, nontender. Negative for masses or hepatosplenomegaly. Negative for costovertebral tenderness. Pelvis: Stable nontender. Genitourinary: Deferred. Rectal: Deferred. Skin: Intact, warm, dry. No lesions or rashes noted. Extremities: Atraumatic, negative for cords or calf pain. Neurovascular unremarkable. Neuro: Awake, alert, oriented. Cranial nerves II through XII unremarkable. Cerebellum unremarkable. Motor and sensory unremarkable throughout. Exam nonfocal. Notes: Discussed importance for follow-up with a primary care provider. Voices understanding and is agreeable to plan of care. Denies any further questions or concerns at this time. Diagnostics: Influenza, STrep Therapeutics: None Prescription: None Impression: Flu like symptoms, improving Pharyngitis, improving Bilateral ear pain, improving Plan: 1. You can alternate ibuprofen and Tylenol as directed for pain and discomfort. 2. Follow-up with your primary care provider as discussed. Return to the ED as needed and as discussed. Definitive disposition and diagnosis as appropriate pending reevaluation and review of above. Generalized Pain Score (Numeric/FACES): 8 - Related Data Allergies Allergy/AdvReac Type Severity Reaction Status Date / Time Iodinated Contrast Media Allergy Rash Verified 05/19/19 14:16 [Iodinated Contrast- Oral and IV Dye] latex Allergy Rash Verified 05/19/19 14:16 Home Meds: Home Meds Calcium Carbonate [Tums] 1 tab.chew CHEW ASDIRECTED PRN 01/12/19 [History] Pnv No.95/Ferrous Fum/Folic AC [ Vitamin Tablet] 1 tab PO DAILY [History] Past Medical History - Past Health History Medical/Surgical History: Denies Medical/Surgical History HEENT History: Reports: None Cardiovascular History: Reports: Heart Murmur Respiratory History: Reports: None Gastrointestinal History: Reports: GERD Genitourinary History: Reports: UTI, Recurrent [employer]IST History: Reports: , Spontaneous Musculoskeletal History: Reports: None Neurological History: Reports: None Psychiatric History: Reports: None Endocrine/Metabolic History: Reports: Obesity/BMI 30+ Hematologic History: Reports: None Immunologic History: Reports: None Oncologic (Cancer) History: Reports: None Dermatologic History: Reports: None - Infectious Disease History Infectious Disease History: Reports: Chicken Pox - Past Surgical History Head Surgeries/Procedures: Reports: None HEENT Surgical History: Reports: None Cardiovascular Surgical History: Reports: None Respiratory Surgical History: Reports: None GI Surgical History: Reports: None Female Surgical History: Reports: Section, D&C Endocrine Surgical History: Reports: None Neurological Surgical History: Reports: None Musculoskeletal Surgical History: Reports: None Oncologic Surgical History: Reports: None Dermatological Surgical History: Reports: None Social & Family History - Family History Family Medical History: Noncontributory - Tobacco Use Smoking Status *Q: Never Smoker Second Hand Smoke Exposure: No - Caffeine Use Caffeine Use: Reports: None - Alcohol Use Days Per Week of Alcohol Use: 1 Number of Drinks Per Day: 3 Total Drinks Per Week: 3 - Recreational Drug Use Recreational Drug Use: No ED ROS GENERAL - Review of Systems Review Of Systems: Comprehensive ROS is negative, except as noted in HPI. ED EXAM, GENERAL - Physical Exam Exam: See Below (see dictation) Course - Vital Signs Last Recorded V/S: Last Vital Signs Temp 98.3 F 05/19/19 14:15 Pulse 68 05/19/19 14:15 Resp 18 05/19/19 14:15 BP 121/84 05/19/19 14:15 Pulse Ox 98 05/19/19 14:15 - Orders/Labs/Meds Orders: Active Orders 24 hr Category Date Time Status CULTURE STREP A CONFIRMATION [RM] Stat Lab 05/19/19 13:45 Results STREP SCRN A RAPID W CULT CONF [RM] Stat Lab 05/19/19 13:45 Results Departure - Departure Time of Disposition: 15:49 Disposition: Home, Self-Care 01 Clinical Impression: Flu-like symptoms Pharyngitis Qualifiers: Pharyngitis/tonsillitis etiology: unspecified etiology Qualified Code(s): J02.9 - Acute pharyngitis, unspecified - Discharge Information Referrals: Guzman Goncalves MD [Primary Care Provider] - Forms: ED Department Discharge Additional Instructions: The following information is given to patients seen in the emergency department who are being discharged to home. This information is to outline your options for follow-up care. We provide all patients seen in our emergency department with a follow-up referral. The need for follow-up, as well as the timing and circumstances, are variable depending upon the specifics of your emergency department visit. If you don't have a primary care physician on staff, we will provide you with a referral. We always advise you to contact your personal physician following an emergency department visit to inform them of the circumstance of the visit and for follow-up with them and/or the need for any referrals to a consulting specialist. The emergency department will also refer you to a specialist when appropriate. This referral assures that you have the opportunity for follow-up care with a specialist. All of these measure are taken in an effort to provide you with optimal care, which includes your follow-up. Under all circumstances we always encourage you to contact your private physician who remains a resource for coordinating your care. When calling for follow-up care, please make the office aware that this follow-up is from your recent emergency room visit. If for any reason you are refused follow-up, please contact the [facility] at and asked to speak to the emergency department charge nurse. [facility] [address] [place] [id number] [facility] [address] [place] [id number] 1. You can alternate ibuprofen and Tylenol as directed for pain and discomfort. 2. Follow-up with your primary care provider as discussed. Return to the ED as needed and as discussed. Sepsis Event Note - Evaluation Sepsis Screening Result: No Definite Risk - Focused Exam Vital Signs: Vital Signs Temp Pulse Resp BP Pulse Ox 05/19/19 14:15 98.3 F 68 18 121/84 98 Date Exam was Performed: 05/19/19 Time Exam was Performed: 15:49 - My Orders Last 24 Hours: My Active Orders 05/19/19 13:45 CULTURE STREP A CONFIRMATION [RM] Stat STREP SCRN A RAPID W CULT CONF [RM] Stat - Assessment/Plan Last 24 Hours: My Active Orders 05/19/19 13:45 CULTURE STREP A CONFIRMATION [RM] Stat STREP SCRN A RAPID W CULT CONF [RM] Stat
== END 2019-05-19 15:59 | disposition home or self-care (01) ==
LOC: MW.ED 13:33
DX: J02.9 Acute pharyngitis, unspecified (principal); H92.03 Otalgia, bilateral; Z91.040 Latex allergy status; Z91.041 Radiographic dye allergy status
CPT/HCPCS: 87081; 87804; 87880-QW; 99283

== ENCOUNTER 2021-11-27 09:15 | Day surgery (SDC) | payer SELFPAY ==
[~2021-11-27 09:15] MED LIST: Lactated Ringers 1,000 ML IV SCH; Lidocaine 2% 5 ML SDV ONE; Propofol 200 MG/20 ML SDV ONE; fentaNYL 100 MCG/2 ML SDV ONE
[2021-11-27] MEDS ORDERED: Midazolam 1 MG/ML 2 ML SDV ONE (10:32)
[2021-11-27] MEDS ORDERED: Propofol 200 MG/20 ML SDV ONE (11:25)
== END 2021-11-27 12:32 | disposition home or self-care (01) ==
LOC: MW.SDS 09:15
PROVIDERS: ATTEND Surgery
DX: K29.50 Unspecified chronic gastritis without bleeding (principal); B96.81 Helicobacter pylori [H. pylori] as the cause of diseases classified elsewhere; K31.9 Disease of stomach and duodenum, unspecified; K21.9 Gastro-esophageal reflux disease without esophagitis; F41.9 Anxiety disorder, unspecified; F32.9 Major depressive disorder, single episode, unspecified; E66.9 Obesity, unspecified; Z79.899 Other long term (current) drug therapy; Z88.5 Allergy status to narcotic agent; Z88.6 Allergy status to analgesic agent; Z87.891 Personal history of nicotine dependence; Z98.890 Other specified postprocedural states; Z68.41 Body mass index [BMI] 40.0-44.9, adult; Z91.040 Latex allergy status
CPT/HCPCS: 00731; 81025; J2250; J2704; J3010; J7120